=== PATIENT | male | born 1960 | race Caucasian/White ===

== ENCOUNTER 2023-08-03 13:44 | Emergency (ER) | payer OTHER, SELFPAY ==
[2023-08-03 13:48] VITALS: BP 160/99
[2023-08-03 14:27] VITALS: BMI 24.0
[2023-08-03 14:52] LABS: % Basophils 4.1 % (0-2); % Eosinophils 0.9 % (0-6); % Lymphocytes 5.5 % (20.5-51.1); % Monocytes 2.3 % (1.7-9.3); % Neutrophils 84.2 % (42.2-75.2); Absolute Basophils 1.2 10^3/uL (0-0.2); Absolute Eosinophils 0.3 10^3/uL (0-0.7); Absolute Immature Granulocytes 0.8 10^3/uL (0-0.05); Absolute Lymphocytes 1.6 10^3/uL (1.2-3.4); Absolute Monocytes 0.7 10^3/uL (0.1-0.6); Mean Corp Hgb Conc. 32.2 g/dL (33.0-37.0); Mean Corpuscular Hgb 23.4 pg (27.0-31.0); Mean Corpuscular Volume 72.9 fL (80.0-94.0); Nucleated Red Blood Cells % 0.1 % (-); Platelet Count 457 10^3/uL (130-400); Red Blood Cell Count 9.69 10^6/uL (4.70-6.10); Red Cell Dist. Width 23.1 % (11.5-14.5); White Blood Cell Count 28.5 10^3/uL (4.8-10.8)
[2023-08-03 14:58] LABS: Hematocrit 70.6 % (39.0-52.0); Hemoglobin 22.7 g/dL (13.0-18.0)
[2023-08-03 15:35] LABS: Blood Urea Nitrogen 41 mg/dl (9-20); Calcium 9.4 mg/dl (8.4-10.2); Carbon Dioxide 20 mmol/L (22-30); Chloride 108 mmol/L (98-107); Estimated Creatinine Clearance 71 ml/min; Glucose 94 mg/dl (70-99); Sodium 137 mmol/L (135-145); eGFR > 60.00
[2023-08-03 16:00] VITALS: BP 148/94
[2023-08-03] MEDS: NSS 1000 IV (16:05)
[2023-08-03 18:00] VITALS: BP 159/86
[2023-08-03 18:05] LABS: Potassium 5.6 mmol/L (3.5-5.1)
--- NOTE | 2023-08-03 18:53 | ED.GENMED ---
History of Present Illness
General
Chief Complaint: Abnormal Lab Value
Source: patient
Exam Limitations: none
Time Seen by Provider: 08/03/23 15:02
Nursing documentation reviewed up to this point in time: agreed with
Travel History
Have you had any contact with someone who has COVID-19?: No
Do you have any symptoms of coronavirus? Fever > 100 degrees, chills, cough, shortness of breath, sore throat, loss of taste or smell, muscle aches, or headache?: No
History of Present Illness
History of Present Illness:
62-year-old male presenting to the emergency department today with concerns of abnormal labs as an outpatient. He claims that he saw his primary care doctor for the first time in many years and had very high hemoglobin level he was sent in for
further assessment. He denies any symptoms at any point.
Past History
Past History
ED Past Medical History: None
ED Past Surgical History: None
Social History
Living: with family
Review of Systems
Review of Systems
Allergies reviewed?: Yes
All Other Systems: ROS reviewed and negative except as documented in HPI and ROS
Phy Exam
Physical Exam
Physical Exam:
GENERAL: Alert , in no apparent distress
EYE: pupils equal and reactive
NECK: Supple, no significant adenopathy.
ENT: o/p clr, mmm.
CARDIAC: Regular rate and rhythm .
LUNGS: Clear breath sounds bilaterally, no acute respiratory distress, no wheezes/rales/rhonchi
ABDOMEN: Soft, without focal tenderness, no r/g, no cvat
NEUROLOGICAL: Alert and oriented, no focal neuro deficits
SKIN: Warm and dry, skin intact.
MUSCULOSKELETAL: No edema, well perfused.
PSYCH: Normal and appropriate interaction.
Course
Orders/Labs/Results
Orders:
Orders
08/03/23 14:40
Basic Metabolic Panel Urgent
Complete Blood Count/With Diff Urgent
08/03/23 15:06
Add On- LAB Urgent
Tests Added?: cbc differential
08/03/23 15:41
0.9% Sodium Chloride 1000 ml [Nss] 1,000 ml IV BOLUS
08/03/23 17:05
Potassium Urgent
Abnormal Lab Results
08/03/23 08/03/23
14:40 17:05
WBC 28.5 H 10^3/uL
(4.8-10.8)
RBC 9.69 H 10^6/uL
(4.70-6.10)
Hgb 22.7 H* g/dL
(13.0-18.0)
Hct 70.6 H* %
(39.0-52.0)
MCV 72.9 L fL
(80.0-94.0)
MCH 23.4 L pg
(27.0-31.0)
MCHC 32.2 L g/dL
(33.0-37.0)
RDW 23.1 H %
(11.5-14.5)
Plt Count 457 H 10^3/uL
(130-400)
Abs Immat Gran (auto) 0.8 H 10^3/uL
(0-0.05)
Absolute Neuts (auto) 24.0 H 10^3/uL
(1.4-6.5)
Absolute Monos (auto) 0.7 H 10^3/uL
(0.1-0.6)
Absolute Basos (auto) 1.2 H 10^3/uL
(0-0.2)
Immature Gran % 3.0 H %
(0-0.5)
Neutrophils % 84.2 H %
(42.2-75.2)
Lymphocytes % 5.5 L %
(20.5-51.1)
Basophils % 4.1 H %
(0-2)
Potassium 5.6 H mmol/L
(3.5-5.1)
Chloride 108 H mmol/L
(98-107)
Carbon Dioxide 20 L mmol/L
(22-30)
BUN 41 H mg/dl
(9-20)
08/03/23 14:40
08/03/23 17:05
Vital Signs
Initial and Last Documented VS:
Initial Vital Signs
Temp Pulse Resp BP Pulse Ox
98.7 F 84 16 160/99 96
08/03/23 13:48 08/03/23 13:48 08/03/23 13:48 08/03/23 13:48 08/03/23 13:48
Last Documented Vital Signs
Temp Pulse Resp BP Pulse Ox
98.7 F 84 16 160/99 96
08/03/23 13:48 08/03/23 13:48 08/03/23 13:48 08/03/23 13:48 08/03/23 13:48
MDM/Problems Addressed
MDM/Problems Addressed:
62-year-old male presenting to the emergency department due to elevated hemoglobin and white count as an outpatient. He denies any symptoms at this point has a normal physical examination blood pressure slightly elevated but otherwise vital signs
are normal. Normal heart and lung exam. White blood cell count 20.5 hemoglobin 22.7 no history of such appear to be consistent with polycythemia vera. Potassium level 5.6 was notified of this and advised to have a potassium sparing diet but
otherwise case was discussed with hematology and he will follow-up closely as an outpatient. Return precautions given.
*Critical Care Note
Total Time (30-74mins, 75-104mins- exclusive of procedures): Not Applicable
ED Attending Note
-
Portions of this chart may have been created with voice recognition software.� Occasional wrong word or��sound alike� substitutions may have occurred due to the inherent limitations of voice recognition software.
Discharge Plan
Departure
Patient Disposition: Home (Routine Discharge)
Date of Disposition: 08/03/23
Time of Disposition: 18:58
Patient with high blood pressure during this ER visit?: No
Condition: Good
Covid-19: Not Applicable
Discharge Problem:
Elevated hemoglobin, Leukocytosis, Thrombocytopenia, Hyperkalemia
Instructions: Hyperkalemia (DC)
Prescriptions:
No Action
acetaminophen [Tylenol Extra Strength] 500 mg Tablet
1,000 mg PO DAILY
Bond Xl
4 cap PO DAILY
Patient Comments:
08/03/2023, [employer].
Referrals:
Mumtaz Altamirano PA [Family Provider] -
Ludwin Lynch DO [Active] - Follow up in 2-3 days
Activity Restrictions/Additional Instructions:
You came to the emergency department today with concerns of abnormal labs. You are found to have multiple labs that were abnormal and you will need very close follow-up for reassessment of this. Please engage in a low potassium diet return for any
worsening, new or concerning symptoms.
Interventions
Interventions:
*Risk Screen - Suicide Last Done: 08/03/23 14:28
*General Assessment Last Done: 08/03/23 14:28
*Neglect/Abuse Screening Last Done: 08/03/23 14:28
*ED COVID-19 Vaccine History Last Done: 08/03/23 13:48
== END 2023-08-03 19:32 | disposition home or self-care (01) ==
LOC: EMR 13:44
PROVIDERS: EMERGENCY PHYSICIAN Emergency Medicine; FAMILY PHYSICIAN Physician Assistant
DX: D72.829 Elevated white blood cell count, unspecified (principal); E87.5 Hyperkalemia; D64.9 Anemia, unspecified; D69.6 Thrombocytopenia, unspecified
CPT/HCPCS: 99284; 96360; 80048; 84132; 85025

== ENCOUNTER → 2023-09-11 11:19 | Outpatient (REF) | payer OTHER, SELFPAY ==
[2023-09-11 13:03] LABS: Blood Urea Nitrogen 47 mg/dl (9-20); Calcium 10.1 mg/dl (8.4-10.2); Carbon Dioxide 22 mmol/L (22-30); Chloride 100 mmol/L (98-107); Glucose 85 mg/dl (70-99); Sodium 136 mmol/L (135-145); eGFR > 60.00
== END ==
LOC: REG 11:19
PROVIDERS: ATTENDING PHYSICIAN Urology; FAMILY PHYSICIAN Physician Assistant
DX: E87.5 Hyperkalemia (principal)
CPT/HCPCS: 36415; 80048

== ENCOUNTER → 2025-02-01 09:07 | Outpatient (REF) | payer MEDICARE, SELFPAY ==
[2025-02-01 11:23] LABS: Hematocrit 45.4 % (39.0-52.0); Hemoglobin 14.6 g/dL (13.0-18.0); Mean Corp Hgb Conc. 32.2 g/dL (33.0-37.0); Mean Corpuscular Volume 100.9 fL (80.0-94.0); Platelet Count 102 10^3/uL (130-400); Red Cell Dist. Width 16.9 % (11.5-14.5)
[2025-02-01 12:36] LABS: ALT (SGPT) 15 U/L (0-50); AST (SGOT) 18 U/L (17-59); Albumin 4.5 g/dl (3.5-5.0); Alkaline Phosphatase 91 U/L (38-126); Blood Urea Nitrogen 25 mg/dl (9-20); Calcium 9.8 mg/dl (8.4-10.2); Carbon Dioxide 28 mmol/L (22-30); Chloride 107 mmol/L (98-107); Glucose 92 mg/dl (70-99); Potassium 4.5 mmol/L (3.5-5.1); Sodium 143 mmol/L (135-145); Total Protein 8.4 g/dl (6.3-8.2); eGFR > 60.00
== END ==
LOC: SDSPAT 09:07
PROVIDERS: ATTENDING PHYSICIAN Urology; FAMILY PHYSICIAN Physician Assistant
DX: Z01.818 Encounter for other preprocedural examination (principal)
CPT/HCPCS: 36415; 80053; 85027; 93005

== ENCOUNTER → 2025-02-26 09:57 | Outpatient (REF) | payer MEDICARE, SELFPAY | LOC: RCS 09:57 | PROVIDERS: ATTENDING PHYSICIAN Internal Medicine Cardiovascular Disease; FAMILY PHYSICIAN Physician Assistant | DX: R94.31 Abnormal electrocardiogram [ECG] [EKG] (principal); I44.7 Left bundle-branch block, unspecified | CPT/HCPCS: 93306 ==

== ENCOUNTER 2025-03-25 06:32 | Day surgery (SDC) | payer MEDICARE, SELFPAY ==
[2025-03-25] VITALS (13 sets, daily range): BP systolic 76–145; BP diastolic 57–105; BMI 25.7; BMI 26.1
[2025-03-25] MEDS: NORMOSOL-R/PLASMALYTE-A 1000 IV (13:21)
--- NOTE | 2025-03-25 17:14 | W.IMMPOSTOP ---
Surgical Immed Post Op Note
-
Primary Surgeon: Gauravfer
Assisting Surgeon: -
Pre-op Diagnosis: BPH, bladder stone
Post-op Diagnosis: same
Procedure Performed: TURP, cystolithotripsy
Anesthesia Type: general
Specimen / Cultures: prostate chips
Estimated Blood Loss: -
Complications: aspiration requiring bronchoscopy, stomach contents in R lung
Operative Findings: routine
--- NOTE | 2025-03-25 18:34 | HPS.HSE ---
Addendum entered and electronically signed by Jeremiah Hurst MD 03/25/25 19:21:
Please discard the admission H & P
Please refer to Hospitalist Medical consultation
Original Note:
Family Physician
-
Family Physician: NO INTERVIEW UNKNOWN
Chief Complaint
-
HOSPITALIST CONSULT to UROLOGIST for acute hypoxia post op
History of Present Illness
HPI
64M seen at PACU
- s/p TURP, cystolithotripsy
- Immediate post op complicated by acute hypoxic RF requiring 6 L NO2 and unable to wean off O2
- 600 cc in his stomach despite being NPO and he aspirated per Urologist
- concerning for aspiration Pneumonitis
- admission requested by Urologist Dr Barclay
Pending final CXR report
Medical History
Past Medical History
Past Medical History: Reports Other (Polycythemia, BPH )
Additional Past Medical History:
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
Past Surgical History: Reports Other
Social History
Tobacco: Non-smoker
Alcohol: None
Drug: None
Family History
Family History: Not pertinent
Allergies / Home Medications
Allergies reflects when Allergies were last updated in [employer].
Home Medications with original date entered in [employer]
Allergy/Medication List:
Allergies
Allergy/AdvReac Type Severity Reaction Status Date / Time
No Known Allergies Allergy Verified 03/25/25 13:00
Home Medications
aspirin 81 mg tablet 81 mg PO DAILY 02/02/25
hydroxyurea 500 mg capsule 1,000 mg PO DAILY 02/02/25
solifenacin 5 mg tablet 5 mg PO DAILY 02/02/25
tamsulosin 0.4 mg capsule 0.4 mg PO DAILY 02/02/25
Review of Systems
-
Constitutional: Reports No Symptoms
Respiratory: Reports Other (wearing FM )
Cardiac: Reports Other (hypotension )
Abdomen/GI: Reports No Symptoms
: Reports Other (on CBI )
Musculoskeletal: Reports No Symptoms
Skin: Reports No Symptoms
Neurological: Reports No Symptoms
Endocrine: Reports No Symptoms
Physical Exam
Vital Signs
Vital Signs
Temp Pulse Resp BP Pulse Ox
97.8 F 88 16 93/66 90
03/25/25 17:12 03/25/25 18:15 03/25/25 18:15 03/25/25 18:15 03/25/25 18:25
Physical Exam
General: No Apparent Distress and Conversant
HEENT: Other (wearing FM )
Respiratory: Clear; No Wheezes, Rales or Rhonchi
Cardiac: S1/S2 and Regular Rhythm
Breast: Deferred by me
GI: Soft, Non Tender and Non Distended
Rectal: Deferred by Provider
Genito-urinary: Continuous Bladder Irrigation
Musculoskeletal: No Edema
Skin: Warm and Dry
Neuro: AO x 3
Psych: Calm
Laboratory Results
-
pending admission labs
Data Reviewed
-
Diagnostic Radiology: Other (pending final CXR report )
Old Records: Reviewed
Impression/Plan
-
03/25/25
18:15 03/25/25
18:25 03/25/25
18:30
Pulse 86
Resp Rate 18
Blood pressure 93/66
SaO2 90 93
Oxygen Mode of Delivery Simple mask
03/25/25
18:30
Pulse
Resp Rate
Blood pressure 88/63
SaO2
Oxygen Mode of Delivery
Laboratory Tests
08/03/23 02/01/25
14:40 09:23
WBC 28.5 H 7.1
Hgb 22.7 H* 14.6
MCV 100.9 H
Plt Count 457 H 102 L
NO PRIOR hospitalist admission:
ASSESSMENT & PLAN
Post op acute hypoxic RF supporting on FM with NC O2 6 L
concerning for aspiration pneumonitis - pending final CXR report
600 cc in the stomach despite being NPO and aspirated per anesthesiologist
- Upgrade level of care to IMU
- O2 support and wean as able
- Broad spectrum ABX coverage with IV Zosyn
- Pending final CXR report
- FU CXR in AM
- FU T and WCC in AM
- Immediate post op TURP, cystolithotripsy
- on CBI
- per Urologist
HX PCR on hydroxyurea
- known to Dr Smart
DVT Px: SCD
Full Code:
IMU
--- NOTE | 2025-03-25 19:15 | CON.HOSP ---
Family Physician
-
Family Physician: NO INTERVIEW UNKNOWN
Chief Complaint
-
HOSPITALIST CONSULT to UROLOGIST for acute hypoxia post op
History of Present Illness
64M seen at PACU
- s/p TURP, cystolithotripsy
- Immediate post op complicated by acute hypoxic RF requiring 6 L NO2 and unable to wean off O2
- 600 cc in his stomach despite being NPO and he aspirated per Urologist
- concerning for aspiration Pneumonitis
- admission requested by Urologist Dr Barclay
Pending final CXR report
Medical History
Past Medical History
Additional Past Medical History:
PCR on Hydroxyurea , BPH
Past Surgical History: Reports Other
Social History
Tobacco: Non-smoker
Alcohol: None
Family History
Family History: Reviewed & Not Pertinent
Allergies / Home Medications
Allergies reflects when Allergies were last updated in [employer].
Home Medications with original date entered in [employer]
Allergy/Medication List:
Allergies
Allergy/AdvReac Type Severity Reaction Status Date / Time
No Known Allergies Allergy Verified 03/25/25 13:00
Home Medications
aspirin 81 mg tablet 81 mg PO DAILY 02/02/25
hydroxyurea 500 mg capsule 1,000 mg PO DAILY 02/02/25
solifenacin 5 mg tablet 5 mg PO DAILY 02/02/25
tamsulosin 0.4 mg capsule 0.4 mg PO DAILY 02/02/25
Review of Systems
-
Constitutional: Reports No Symptoms
EENT: Reports No Symptoms
Respiratory: Reports See HPI
Cardiac: Reports No Symptoms
Abdomen/GI: Reports No Symptoms
: Reports See HPI
Musculoskeletal: Reports No Symptoms
Skin: Reports No Symptoms
Neurological: Reports No Symptoms
Endocrine: Reports No Symptoms
Hematologic/Lymphatic: Reports See HPI
Psych: Reports No Symptoms
Physical Exam
Vital Signs
Vital Signs
Temp Pulse Resp BP Pulse Ox
97.8 F 88 18 90/68 92
03/25/25 17:12 03/25/25 19:00 03/25/25 19:00 03/25/25 19:00 03/25/25 19:00
Physical Exam
General: Well Developed, Well Nourished and No Apparent Distress
HEENT: Normocephalic, Moist Mucous Membranes and Atraumatic
Respiratory: Clear and Other (wearing FM , NC O2 6 L )
Cardiac: S1/S2 and Regular Rhythm; Negative Murmur or Rub
GI: Soft, Non Tender, Non Distended and Normal Bowel Sounds
Rectal: Deferred by Provider
Genito-urinary: Other (CBI )
Musculoskeletal: No Clubbing, No Cyanosis and No Edema
Skin: Negative Rash
Neuro: Nonfocal/Grossly Intact
Psych: Calm
Laboratory Results
-
Laboratory Tests
08/03/23 02/01/25
14:40 09:23
WBC 28.5 H 7.1
Hgb 22.7 H* 14.6
Plt Count 457 H 102 L
Sodium 143
Potassium 4.5
Chloride 107
Carbon Dioxide 28
BUN 25 H
Creatinine 1.2
eGFR > 60.00
Total Bilirubin 1.5 H
Data Reviewed
-
Lab Data: Discussed with Physician
Old Records: Reviewed
Impression / Plan
-
NO PRIOR hospitalist admission:
ASSESSMENT & PLAN
Post op acute hypoxic RF supporting on FM with NC O2 6 L
concerning for aspiration pneumonitis - pending final CXR report
600 cc in the stomach despite being NPO and aspirated per anesthesiologist
- Upgrade level of care to IMU
- O2 support and wean as able
- Broad spectrum ABX coverage with IV Zosyn
- Pending final CXR report
- FU CXR in AM
- FU T and WCC in AM
- Case dw Anesthesiologist
- Immediate post op TURP, cystolithotripsy
- on CBI
- per Urologist
HX PCR on hydroxyurea
- known to Dr Smart
DVT Px: SCD
Full Code:
IMU
[2025-03-25] MEDS: NSS 1000 IV (21:24)
[2025-03-25] MEDS: ZOSYN 50 IV (21:24)
[2025-03-26] VITALS (19 sets, daily range): BP systolic 86–116; BP diastolic 62–88; BMI 26.0
[2025-03-26] MEDS: ZOSYN 50 IV ×4 (02:44→20:38)
[2025-03-26 04:55] LABS: Hematocrit 41.5 % (39.0-52.0); Hemoglobin 13.9 g/dL (13.0-18.0); Mean Corp Hgb Conc. 33.5 g/dL (33.0-37.0); Mean Corpuscular Volume 104.3 fL (80.0-94.0); Nucleated Red Blood Cells % 0 % (-); Platelet Count 72 10^3/uL (130-400); Red Cell Dist. Width 16.8 % (11.5-14.5)
[2025-03-26 05:06] LABS: Blood Urea Nitrogen 20 mg/dl (9-20); Calcium 7.8 mg/dl (8.4-10.2); Carbon Dioxide 24 mmol/L (22-30); Chloride 106 mmol/L (98-107); Estimated Creatinine Clearance 64 ml/min; Glucose 164 mg/dl (70-99); Potassium 4.2 mmol/L (3.5-5.1); Sodium 134 mmol/L (135-145); eGFR > 60.00
[2025-03-26 05:55] LABS: Hepatitis C Antibody Negative (Negative)
--- NOTE | 2025-03-26 06:39 | PTCARENOTE ---
Admitted pt overnight. aaox3 pleasant. NSR. Bumped to 10LMF overnight but back down to 6LNC 94%. Wet cough, coarse rhonchi lungs. CBI running overnight and clamped at 0600. Output peach color, no clots, no pain. 1Lbolus overnight, ivabx. Denies
pain. Will monitor.
--- NOTE | 2025-03-26 08:26 | W.PN.HOSP.TC ---
Addendum entered and electronically signed by Gemma March MD 03/26/25 16:17:
I saw and evaluated the patient independently. I reviewed and discussed the resident�s note and agree with findings and plan as documented by Dr. Montoya.
GENERAL: well developed, well nourished, male in no apparent distress
HEENT: NC/AT--O2 NC 3L in place
HEART: regular rate and rhythm, +S1, +S2
LUNGS : rhonchi right base
ABDOM: soft, nontender, nondistended, + bowel sounds
EXT: no cyanosis, clubbing, or edema
NEUROLOGIC: grossly intact
Post op acute hypoxic RF from witnessed aspiration (600 mls in stomach despite NPO status)--aspiration pneumonia vs aspiration pneumonitis (CXR with infiltrate leans towards pneumonia but rapid recovery leans towards pneumonitis)--apprec pulm--cont
zosyn--can transition to oral Augmentin closer to d/c--wean O2 to off
post op TURP, cystolithotripsy--off CBI--chávez d/c'd--apprec urology--pain management--bowel regimen
HX polycythemia on hydroxyurea- known to Dr Smart- follow counts
DVT Proph-- SCD
Code status--Full Code
hopeful d/c soon
Original Note:
Today's Communication/Plan
-
- Pt denied knowledge of a hx of pseudomonas or MRSA infection, denied abx within last 90 days
- Continue IV Zosyn
- Since pt had SIRS criteria after procedure, considering switching to meropenem (or imipenem + cilastin) + vancomycin (or linezolid)
Started prn bowel regimen: Miralax, Sennakot, bisacodyl
Assessment / Plan
Assessment / Plan
Impression:
64M with PMH of PBH seen at PACU
- s/p TURP, cystolithotripsy for bladder stone
- Anesthesia complicated by aspiration with LMA, bronchoscopy to remove secretions from R lung
- Immediate post op course complicated by acute hypoxic RF requiring 6 L NO2 and unable to wean off O2
- 600 cc in his stomach despite being NPO and he aspirated per Urologist
- concerning for aspiration Pneumonitis
- admission requested by Urologist Dr Barclay
64M with BPH s/p TURP, bladder stone removal 03/25/25
- CXR 03/25/2025: LARGE DENSE AIRSPACE CONSOLIDATION in the RIGHT LOWER and MIDDLE LOBES containing air bronchograms. Diagnostic possibilities are (1) severe aspiration pneumonia, (2) atelectasis secondary to endobronchial mucous plugging, or (3)
atelectasis secondary to a large pericardial fat pad.
- CXR 03/26/25: 1. Right basilar consolidation with greatest involvement of the right lower lobe, again most suspicious for aspiration/pneumonia. Minor opacity in the right upper lobe. 2. No pleural effusion or pneumothorax. Stable cardiomediastinal
silhouette.
Plan
#Aspiration pna
#Post op acute hypoxic RF
- Post op required NC O2 6 L. No O2 requirement at home
600 cc in the stomach despite being NPO and aspirated per anesthesiologist
- Upgrade level of care to IMU
- O2 support and wean as able
- CXR 03/25/2025: LARGE DENSE AIRSPACE CONSOLIDATION in the RIGHT LOWER and MIDDLE LOBES containing air bronchograms. Diagnostic possibilities are (1) severe aspiration pneumonia, (2) atelectasis secondary to endobronchial mucous plugging, or (3)
atelectasis secondary to a large pericardial fat pad.
- CXR 03/26/25: 1. Right basilar consolidation with greatest involvement of the right lower lobe, again most suspicious for aspiration/pneumonia. Minor opacity in the right upper lobe. 2. No pleural effusion or pneumothorax. Stable cardiomediastinal
silhouette.
� WBC 8.6, up from 7.1. Thrombocytopenia 72. Hepatitis C negative.
- MRSA nares: pending
Interventions
- Pt denied knowledge of a hx of pseudomonas or MRSA infection, denied abx within last 90 days
- Continue IV Zosyn
- Since pt had SIRS criteria after procedure, considering switching to meropenem (or imipenem + cilastin) + vancomycin (or linezolid)
- Immediate post op TURP, cystolithotripsy
- CBI post-op. TOV 03/26/25
- per Urologist
#Pain management post-op
Received hydromorphone
- Started bowel regimen: Miralax, Sennakot, bisacodyl
HX polycythemia on hydroxyurea (PCV?)
- known to Dr Smart
- Hb wnl. RBC low. Plts low. WBC wnl
DVT Px: SCD
Full Code
Anticipated Discharge: 24 - 48 hours
Subjective/Interval History
-
Date of Service: March 26, 2025
No acute events overnight. Patient states his has no SOB (on 5.5 L). Has no complaints.
Objective Data
-
Labs:
Laboratory Results
03/26/25
04:23
WBC 8.6
Hgb 13.9
Hct 41.5
Plt Count 72 L
Sodium 134 L
Potassium 4.2
Chloride 106
Carbon Dioxide 24
BUN 20
Creatinine 1.3
Glucose 164 H
Calcium 7.8 L
Vital Signs:
Vital Signs
Temp Pulse Resp BP Pulse Ox
97.6 F 75 16 105/75 96
03/26/25 03:00 03/26/25 07:25 03/26/25 07:25 03/26/25 07:25 03/26/25 07:25
I&O
03/25/25 03/26/25 03/27/25
06:59 06:59 06:59
Intake Total 605 / 605
Output Total 650 / 650
Balance -45 / -45
Review of Systems
-
History Source: Patient
All other systems: Reviewed and negative
Physical Exam
-
General: Well Developed, Well Nourished, No Apparent Distress, Comfortable and Conversant; Negative Respiratory Distress
HEENT: Normocephalic, Atraumatic, Anicteric, No Ptosis, Nose Appears Normal and Ears Appear Normal
Respiratory: Crackles (right basilar crackles)
Cardiac: Regular Rhythm and S1/S2
GI: Soft, Nontender, Nondistended and Normal Bowel Sounds
Musculoskeletal: No Clubbing, No Cyanosis and No Edema
Skin: Warm and Dry
Neuro: Awake and Alert
Psych: Calm
[2025-03-26] MEDS: FLOMAX 0.4 MG PO (08:44)
[2025-03-26] MEDS: ASPIR LOW (ENTERIC COATED) 81 MG PO (08:44)
[2025-03-26] MEDS: HYDREA 1000 MG PO (08:44)
[2025-03-26 09:01] LABS: Albumin 3.3 g/dl (3.5-5.0)
--- NOTE | 2025-03-26 09:33 | W.PN.URO.CBU ---
Today's Communication / Plan
-
Trial of void
Wean O2
Dispo planning
Assessment / Plan
-
64M with BPH s/p TURP, bladder stone removal 03/25/25
Anesthesia complicated by aspiration with LMA, bronchoscopy to remove secrections from R lung
- Ortiz out this AM for trial of void
- Wean supplemental O2 as able
- On prophylactic abx per hospitalist - will defer to them on any outpatient course
- Possible discharge today pending respiratory status
Diagnosis
-
Date of Service: March 26, 2025
-
Patient Diagnosis:
BPH
Aspiration during procedure
Post Op s/p TURP, bladder stone removal 03/25
Subjective
-
No pain or bleeding issues overnight
O2 sat improved on supplemental O2
Objective
-
Vital Signs
Temp Pulse Resp BP Pulse Ox
97.6 F 75 16 105/75 96
03/26/25 03:00 03/26/25 07:25 03/26/25 07:25 03/26/25 07:25 03/26/25 07:25
Intake and Output
03/25/25 03/26/25 03/27/25
06:59 06:59 06:59
Intake Total 605 / 605
Output Total 650 / 650
Balance -45 / -45
Intake:
Oral fluids 480 / 480
IV fluids (Total) 125 / 125
normosol 125 / 125
Output:
True Urine Output from CBI 650 / 650
Laboratory Results
03/26/25 04:23
03/26/25 04:23
Physical Exam
-
General - well developed, well nourished, no acute distress
Chest - nonlabored, on HFNC
Abdomen - soft, non-tender
Ortiz with pink urine off CBI
Skin - warm & dry with no rash
Neuro - AOx3, no motor deficits
Extremities - no clubbing, no cyanosis, no edema
--- NOTE | 2025-03-26 12:52 | PTCARENOTE ---
Assumed care of patient at beginning of this shift from previous RN with 3-way chávez in place, CBI clamped on previous shift; urine was draining maurice/blood tinged in tubing with some clots noted. Order entered by Dr Ravi to d/c kyler; reviewed
with him via TT urine drainage appearance, ok to d/c chávez as ordered. Chávez pulled at 11:05; urinal within reach. Patient instructed to notify nurse if needed to void. OOB to chair for most of the morning. Oxygen weaned to 3L with POx currently
92-94%. Patient denies SOB. Lungs coarse t/o, increased on expiration. See worklist for full assessment and vital signs.
--- NOTE | 2025-03-26 15:35 | CON.PUL ---
Consultation
Consultation Request
Date/Time Consultation Requested: 03/26/2025
Date/Time Consultation Performed: 03/26/2025
Requesting Provider: Dr. Hurst
Performing Provider: Dr. Jose A Lawson
Reason for Consultation: Pneumonia/possible aspiration
Medical History
-
History of Present Illness:
64-year-old man status post TURP and cystoscopy lithotripsy on 03/25/2025-immediately postoperatively complicated by hypoxemic respiratory failure requiring 6 L nasal cannula. Patient usually not on oxygen or with history of pulmonary problems.
600 cc aspirated from the stomach despite being n.p.o.-aspiration was witnessed by urologist.
Chest x-ray 03/26/2025: Showed right basilar consolidation.
We were consulted to help with hypoxemia and aspiration event.
Initially with phlegm production
now phlegm is very minimal.
Denies chills
Denies shortness of breath at rest
Denies chest discomfort
Denies any previous pulmonary issues.
-
Past Medical History
Past Medical History: Other (See assessment and plan)
Social History
Tobacco: Former Smoker (Quit about 7 years ago-half to three quarters of a pack for at least 25 years.)
Alcohol: None
Drug: None
Family History
Family History: Reviewed & Not Pertinent
Allergies / Home Medications
Allergies
Allergy/AdvReac Type Severity Reaction Status Date / Time
No Known Allergies Allergy Verified 03/25/25 13:00
Home Medications
�Medication �Instructions �Recorded �Confirmed �Last Taken �Type
aspirin 81 mg tablet 81 mg PO DAILY 02/02/25 03/25/25 03/24/25 History
hydroxyurea 500 mg capsule 1,000 mg PO DAILY 02/02/25 03/25/25 03/24/25 History
solifenacin 5 mg tablet 5 mg PO DAILY 02/02/25 03/25/25 03/24/25 History
tamsulosin 0.4 mg capsule 0.4 mg PO DAILY 02/02/25 03/25/25 03/24/25 History
phenazopyridine 200 mg tablet 200 mg PO TIDPRN PRN urinary 03/26/25 Unknown Rx
burning #1 tab
Review of Systems
-
History Source: Patient
All other systems: Negative unless noted
Vitals / Labs / Diagnostic Testing
Vital Signs
Temp Pulse Resp BP Pulse Ox
97.6 F 92 14 100/68 94
03/26/25 03:00 03/26/25 14:00 03/26/25 14:00 03/26/25 14:00 03/26/25 14:00
Lab Data
03/26/25 04:23
03/26/25 04:23
Diagnostic Testing:
Physical Exam
-
HEENT: Normocephalic
Cardiovascular: S1/S2
Respiratory: Rales (Right base) and Non-Labored Respirations
GI: Soft and Non Distended
Neurology: Awake
Skin: Warm
General: Comfortable
Assessment
-
64-year-old man with past medical history noted, admitted electively to the operating room underwent TURP and cystoscopy lithotripsy. Subsequently developed hypoxemia. He was then transferred to the floors. It is noted in the chart that
aspiration was witnessed. Patient was 600 cc of residual content in the stomach despite being NPO.
Chest x-ray with right lower lobe infiltrate.
We were consulted for management of hypoxemia.
Acute hypoxemic respiratory failure-requiring 6 L nasal cannula which is new for him.
Aspiration suspected-witnessed in the OR.
600 cc in the stomach despite being n.p.o.
Chest x-ray: Right lower lobe infiltrate
Conditions present prior admission:
BPH
Polycythemia-on hydroxyurea
Assessment and plan:
Clinical presentation classic for aspiration as it was witnessed.
Afebrile
No leukocytosis
Aspiration pneumonia versus pneumonitis.
-
Agree with Suhas for now. Continue to monitor for fevers and clinical improvement.
As patient improves can de-escalate antibiotics possibly to Augmentin and complete total 57 days.
Rapid improvement suggest chemical pneumonitis.
-
Incentive spirometry
Patient from 6 L now down to 3 L.
Lung exam with right base crackles.
Phlegm production has improved
Continue oxygen supplementation to maintain pulse ox above 88% hopefully oxygen can be weaned off in the next 24 hours.
-
Patient denies any previous pulmonary disease
-
Ortiz has been discontinued.
-
Radiographic follow-up will be needed in the outpatient setting--he is a former smoker. I did discuss this with him and he is interested in following up.
Information will be left in the chart for follow-up.
-
If patient is clinically improved tomorrow and oxygen can be weaned off can transition to oral antibiotics and complete 5 to 7 days and possibly discharge.
Pulmonary will follow briefly
--- NOTE | 2025-03-26 17:39 | CM ---
Patient seen at bedside with physicians s/p procedure. Patient remaining on O2 at this time. Patient lives alone and he use the [facility] with Dr. Altamirano is his PCP. Patient does not have any DME at home. Patient plan is home with no needs.
Patient will need home O2 assessment. CM will continue to follow for discharge planning needs.
Plan; home with no needs; watch for home O2 needs and VN.
--- NOTE | 2025-03-26 17:48 | PTCARENOTE ---
Patient voided 50ml bloody urine; PVR bladder scan 169. Dr Ravi made aware via TT.
[2025-03-27] VITALS (11 sets, daily range): BP systolic 96–137; BP diastolic 71–96; PULSE 82–83; O2SAT 94–95
[2025-03-27] MEDS: ZOSYN 50 IV ×2 (03:43→08:27)
[2025-03-27 05:12] LABS: Hematocrit 37.2 % (39.0-52.0); Hemoglobin 12.4 g/dL (13.0-18.0); Mean Corp Hgb Conc. 33.3 g/dL (33.0-37.0); Mean Corpuscular Volume 104.2 fL (80.0-94.0); Nucleated Red Blood Cells % 0 % (-); Platelet Count 75 10^3/uL (130-400); Red Cell Dist. Width 17.1 % (11.5-14.5)
--- NOTE | 2025-03-27 05:25 | PTCARENOTE ---
Pt voiding over night, urine color going from bloody to blood tinge/maurice. See work list bladder scan for amounts. Pt has no complaints at this time. Call celaya within reach.
[2025-03-27 05:38] LABS: Blood Urea Nitrogen 23 mg/dl (9-20); Calcium 7.9 mg/dl (8.4-10.2); Carbon Dioxide 25 mmol/L (22-30); Chloride 106 mmol/L (98-107); Estimated Creatinine Clearance 59 ml/min; Glucose 106 mg/dl (70-99); Potassium 4.1 mmol/L (3.5-5.1); Sodium 132 mmol/L (135-145); eGFR 55.78
[2025-03-27] MEDS: ASPIR LOW (ENTERIC COATED) 81 MG PO (08:27)
[2025-03-27] MEDS: FLOMAX 0.4 MG PO (08:27)
[2025-03-27] MEDS: HYDREA 1000 MG PO (08:27)
--- NOTE | 2025-03-27 09:29 | PTCARENOTE ---
Assumed care of patient at beginning of this shift from previous RN with O2 2l n/c in use. Able to wean to RA with current POx 94%. Lungs coarse posteriorly. Dr Torres in to see patient this morning.
Initial bladder scan at 0815 was 443 after patient voided 175 (patient was lying in bed when he voided). Patient stated he had no further urge to void. Assisted patient to stand to use urinal and he was able to void another 225 at 0820. PVR 229.
Urine maurice/blood tinged; no clots. Instructed patient to stand with assistance when needing to void and encouraged increased water intake as per Dr Ravi yesterday. He denied pain/burning with urination.
See worklist for full assessment and vital signs.
--- NOTE | 2025-03-27 09:32 | W.PN.PUL.V3 ---
Today's Communication / Plan
-
Transition to oral antibiotics-finish finite course as an outpatient
Increase activity
Oxygen weaned to room air
Outpatient radiographic follow-up
Outpatient pulmonary follow-up
Assessment
-
64-year-old man with past medical history noted, admitted electively to the operating room underwent TURP and cystoscopy lithotripsy. Subsequently developed hypoxemia. He was then transferred to the floors. It is noted in the chart that
aspiration was witnessed. Patient was 600 cc of residual content in the stomach despite being NPO.
Chest x-ray with right lower lobe infiltrate.
We were consulted for management of hypoxemia.
Acute hypoxemic respiratory failure-requiring 6 L nasal cannula which is new for him.
Aspiration suspected-witnessed in the OR.
600 cc in the stomach despite being n.p.o.
Chest x-ray: Right lower lobe infiltrate
Conditions present prior admission:
BPH
Polycythemia-on hydroxyurea
Plan
Respiratory status is improved
FiO2 has been weaned to room air
Check rest and exercise oximetry
Mucus clearing devices
Nebulizers if needed-currently not bronchospastic
Radiographs reviewed
Will need outpatient radiographic follow-up to ensure clearing
Finite course of antibiotics
Stable for proposed discharge-pulmonary follow-up
Radiographic follow-up will be needed in the outpatient setting--he is a former smoker. I did discuss this with him and he is interested in following up.
Information will be left in the chart for follow-up.
Subjective Data
-
Date of Service:
Date of Service: March 27, 2025
Chief Complaint: Pulmonary Follow Up and Dyspnea Follow Up
Subjective:
Feels better, some mild chest congestion, some brown sputum production, no chest pain, shortness of breath at rest, or abdominal pain
Review of Systems
General: Other ( per HPI)
Objective Data
Data Reviewed
Vital Signs / I&O:
Vital Signs
Temp Pulse Resp BP Pulse Ox
98.3 F 75 19 116/76 93
03/27/25 07:00 03/27/25 08:00 03/27/25 08:00 03/27/25 08:00 03/27/25 08:00
Intake and Output
03/26/25 03/27/25 03/28/25
06:59 06:59 06:59
Intake Total 605 / 605 580 / 580
Output Total 650 / 650 720 / 720 175 / 175
Balance -45 / -45 -140 / -140 -175 / -175
SaO2: 93
Nasal Cannula flow liters per minute: 2
Physical Exam
General: Respiratory Distress (n) and Comfortable
HEENT: Normocephalic, Anicteric and Moist Mucous Membranes
Cardiovascular: Regular Rhythm
Respiratory: Wheeze (n), Crackles (Right base), Rhonchi (n), Non-Labored Respirations, Accessory Resp Muscle Use (n) and Stridor
GI: Soft, Non Distended and Non Tender
Neurology: Awake, Alert and No Motor Deficits
Skin: Warm, Good Color, Cyanosis (n), Jaundice (n) and Rash
Labs/Micro/Reports
Lab Data
03/27/25 04:28
03/27/25 04:28
--- NOTE | 2025-03-27 12:35 | W.PN.URO.CBU ---
Today's Communication / Plan
-
Discharge
Assessment / Plan
-
64M with BPH s/p TURP, bladder stone removal 03/25/25
Anesthesia complicated by aspiration with LMA, bronchoscopy to remove secrections from R lung
- Off supplemental O2
- Continued abx 7 days per hospitalist/pulm
- Discharge today
Diagnosis
-
Date of Service: March 27, 2025
-
Patient Diagnosis:
Post Op Day:
Patient Diagnosis:
BPH
Aspiration during procedure
Post Op s/p TURP, bladder stone removal 03/25
Subjective
-
off O2
voiding without difficulty
Objective
-
Vital Signs
Temp Pulse Resp BP Pulse Ox
97.9 F 84 13 108/77 91
03/27/25 11:00 03/27/25 10:00 03/27/25 10:00 03/27/25 10:00 03/27/25 10:00
Intake and Output
03/26/25 03/27/25 03/28/25
06:59 06:59 06:59
Intake Total 605 / 605 580 / 580
Output Total 650 / 650 720 / 720 575 / 575
Balance -45 / -45 -140 / -140 -575 / -575
Intake:
Oral fluids 480 / 480 480 / 480
IV fluids (Total) 125 / 125
normosol 125 / 125
IV piggybacks 100 / 100
Output:
Urine, Voided 720 / 720 575 / 575
True Urine Output from CBI 650 / 650
Laboratory Results
03/27/25 04:28
03/27/25 04:28
Physical Exam
-
General - well developed, well nourished, no acute distress
Chest - clear bilaterally
Abdomen - soft, non-tender
Urine clight pink
--- NOTE | 2025-03-27 12:46 | W.PN.HOSP.TC ---
Addendum entered and electronically signed by Gemma March MD 03/27/25 13:53:
I saw and evaluated the patient independently. I reviewed and discussed the resident�s note and agree with findings and plan as documented by Dr. Tucker.
GENERAL: well developed, well nourished, male in no apparent distress
HEENT: NC/AT--room air
HEART: regular rate and rhythm, +S1, +S2
LUNGS : rhonchi right base
ABDOM: soft, nontender, nondistended, + bowel sounds
EXT: no cyanosis, clubbing, or edema
NEUROLOGIC: grossly intact
Post op acute hypoxic RF from witnessed aspiration (600 mls in stomach despite NPO status)--aspiration pneumonia vs aspiration pneumonitis (CXR with infiltrate leans towards pneumonia but rapid recovery leans towards pneumonitis)--apprec pulm--zosyn
to oral Augmentin
post op TURP, cystolithotripsy--off CBI--chávez d/c'd--apprec urology--pain management--bowel regimen
HX polycythemia on hydroxyurea- known to Dr Smart- follow counts
DVT Proph-- SCD
Code status--Full Code
no objection to d/c--will sign off
Original Note:
Today's Communication/Plan
-
- discharge patient today
Assessment / Plan
Assessment / Plan
Post op acute hypoxic RF from witnessed aspiration of 600 mls stomach:
- Post op required NC O2 6 L. No O2 requirement at home
600 cc in the stomach despite being NPO and aspirated per anesthesiologist
- BPH s/p TURP, bladder stone removal 03/25/25, Anesthesia complicated by aspiration with LMA, bronchoscopy to remove secrections from R lung
- Upgrade level of care to IMU
- O2 support and weaned off today on 03/27/2025, satting 93% on room air
- Chávez discontinued
- Transition IV Zosyn to Augmentin 7 days BID on discharge
- Pulmonology consulted, are ok with discharge, f/u in 4-6 weeks for radiographic follow up
- F/u urology outpatient
- D/c tamsulosin on discharge
Pain management post-op
Received hydromorphone
Started bowel regimen: Miralax, Sennakot, bisacodyl
HX polycythemia on hydroxyurea
- known to Dr Smart
- Hb wnl. RBC low. Plts low. WBC wnl
- continue hydroxyurea on discharge
DVT Px: SCD
Full Code
Anticipated Discharge: 24 - 48 hours
Subjective/Interval History
-
Date of Service: March 27, 2025
Pt states dry cough on exam of ROS. No dizziness, headache, visual changes, diarrhea, nausea, vomiting, lower extremity edema, numbness, weakness.
No overnight medical events.
Objective Data
-
Labs:
Laboratory Results
03/27/25
04:28
WBC 6.2
Hgb 12.4 L
Hct 37.2 L
Plt Count 75 L
Sodium 132 L
Potassium 4.1
Chloride 106
Carbon Dioxide 25
BUN 23 H
Creatinine 1.4 H
Glucose 106 H
Calcium 7.9 L
Vital Signs:
Vital Signs
Temp Pulse Resp BP Pulse Ox
97.9 F 83 17 137/96 93
03/27/25 11:00 03/27/25 12:01 03/27/25 12:01 03/27/25 12:01 03/27/25 12:43
I&O
03/26/25 03/27/25 03/28/25
06:59 06:59 06:59
Intake Total 605 / 605 580 / 580
Output Total 650 / 650 720 / 720 575 / 575
Balance -45 / -45 -140 / -140 -575 / -575
Review of Systems
-
History Source: Patient
All other systems: Reviewed and negative
Physical Exam
-
General: Well Developed, Well Nourished, No Apparent Distress, Comfortable and Conversant; Negative Respiratory Distress
HEENT: Normocephalic, Atraumatic, Anicteric, No Ptosis, Nose Appears Normal and Ears Appear Normal
Respiratory: Crackles (right basilar crackles)
Cardiac: Regular Rhythm and S1/S2
GI: Soft, Nontender, Nondistended and Normal Bowel Sounds
Musculoskeletal: No Clubbing, No Cyanosis and No Edema
Skin: Warm and Dry
Neuro: Awake and Alert
Psych: Calm
Data Reviewed
-
Labs: Labs Reviewed by me and Discussed with Physician
--- NOTE | 2025-03-27 15:34 | CM ---
F/U: Patient discharging and has no needs. IMM completed. PLAN: DC home no needs.
== END 2025-03-27 15:00 | disposition home or self-care (01) ==
LOC: SDS 06:32
PROVIDERS: ATTENDING PHYSICIAN Urology; CONSULT PHYSICIAN Internal Medicine; CONSULT PHYSICIAN Internal Medicine Critical Care Medicine
DX: N42.32 Atypical small acinar proliferation of prostate (principal); N40.1 Benign prostatic hyperplasia with lower urinary tract symptoms; N21.0 Calculus in bladder; Z87.891 Personal history of nicotine dependence
CPT/HCPCS: 52601; 71045; 71046; 80048; 82040; 82330; 85025; 86803; 87070; 88305; 88344; 94669; 97162; 97166